=== PATIENT | female | born 1965 | race Caucasian/White ===

== ENCOUNTER 2016-10-13 11:36 | Inpatient (IN) | payer OTHER ==
[~2016-10-13] VITALS: Ht 165.1 cm; Wt 54.4 kg
--- NOTE | 2016-10-13 11:44 | NUR ---
PT BIB [facility] C/O EPIGASTRIC PAIN AND N/V SINCE THIS MORNING S/P RUNNING A MARATHON AND THEN EATING FOOD YESTERDAY. DENIES HEMATEMESIS. DENIES URINARY SYMPTOMS. RESP EVEN UNLABORED. SKIN WARM NONDIAPHORETIC. IN ER BED 14 ON MONITOR. Addendum: 10/13/16 at 1216 by HFOX CORRECTION: RAN 7 MILES, NOT A MARATHON.
[2016-10-13] MEDS ORDERED: IV SET PRIMARY 1 EA INFUS.SET MC ONE (12:39)
[2016-10-13] MEDS ORDERED: IV NS 0.9% 1,000 ML ONE (12:39)
[2016-10-13 12:54] LABS: BASOPHILS # (AUTO) 0.1 /CMM (0.0-0.2); BASOPHILS % (AUTO) 0.9 % (0.0-2.0); EOSINOPHILS # (AUTO) 0.1 /CMM (0.0-0.7); EOSINOPHILS % (AUTO) 0.8 % (0.0-6.0); HEMATOCRIT 43 % (33-45); LYMPHOCYTES # (AUTO) 1.2 /CMM (0.8-4.8); LYMPHOCYTES % (AUTO) 10.4 % (20.0-44.0); MEAN CORPUSCULAR HEMOGLOBIN 28 PG (26.0-33.0); MEAN CORPUSCULAR HGB CONC 33 g/dl (31.0-36.0); MEAN CORPUSCULAR VOLUME 84 fL (82-100); MONOCYTES # (AUTO) 0.4 /CMM (0.1-1.30); MONOCYTES % (AUTO) 3.5 % (2.0-12.0); NEUTROPHILS # (AUTO) 9.6 /CMM (1.8-8.9); NEUTROPHILS % (AUTO) 84.4 % (43.0-81.0); PLATELET COUNT (AUTO) 167 /CMM (150-450); RDW COEFFICIENT OF VARIATION 12.6 (11.5-15.0); RED BLOOD CELL COUNT(AUTO) 5.09 MIL/uL (4.0-5.2); WHITE BLOOD COUNT (AUTO) 11.4 K/uL (4.3-11.0)
--- NOTE | 2016-10-13 12:54 | NUR ---
PT CANNOT URINATE AT THIS TIME. WILL TRY AGAIN AFTER IVF.
[2016-10-13] MEDS ORDERED: IV NS 0.9% 1,000 ML BAG IV ONE (13:00)
[2016-10-13 13:06] LABS: CALCIUM, SERUM 9.1 mg/dL (8.5-10.1); POTASSIUM 3.6 mmol/L (3.5-5.1)
[2016-10-13 13:15] LABS: ALBUMIN 3.8 g/dL (3.4-5.0); BILIRUBIN,DIRECT 0.3 mg/dL (0.0-0.2); BILIRUBIN,TOTAL 2.3 mg/dL (0.2-1.0); TOTAL PROTEIN, SERUM 6.8 g/dL (6.4-8.2)
[2016-10-13] MEDS ORDERED: MORPHINE SULFATE INJ 4 MG/ML DISP.SYRIN ONE (13:59)
[2016-10-13] MEDS ORDERED: ONDANSETRON HCL/PF 4 MG/2 ML VIAL ONE (13:59)
[2016-10-13] MEDS ORDERED: MORPHINE SULFATE INJ 2 MG/ML DISP.SYRIN IV ONE (14:00)
[2016-10-13] MEDS ORDERED: ONDANSETRON HCL/PF 4 MG/2 ML VIAL IVP ONE (14:00)
[2016-10-13 14:27] LABS: APPEARANCE,URINE Hazy (CLEAR); BILIRUBIN,URINE Negative (NEGATIVE); BLOOD, URINE Trace-intact Ery/uL (NEGATIVE); COLOR,URINE Yellow (YELLOW); KETONES,URINE >=160 (NEGATIVE); LEUKOCYTE ESTERASE ,URINE Negative (NEGATIVE); NITRITE, URINE Negative (NEGATIVE); PH,URINE 7.5 (5.0-8.0); PROTEIN,URINE 30 mg/dl (NEGATIVE); UGLUCOSE Negative (NEGATIVE); UROBILINOGEN,URINE 0.2 EU/dL (0.2)
[2016-10-13 14:30] LABS: BACTERIA,URINE Rare /HPF (None Seen); MUCUS,URINE Rare /LPF (None Seen); RBC,URINE 0-3 /HPF (0-2); SQUAMOUS EPITHELIAL CELL,UR Few /HPF (None Seen); WBC,URINE 0-3 /HPF (0-3)
[2016-10-13] MEDS ORDERED: IV NS 0.9% 1,000 ML IV PRN (14:40)
[2016-10-13] MEDS ORDERED: HYDROCODONE/APAP 5/325MG 1 EACH TABLET PO PRN ×2 (15:00→16:30)
[2016-10-13] MEDS ORDERED: PANTOPRAZOLE 40 MG VIAL IV SCH ×2 (15:00→16:30)
[2016-10-13] MEDS ORDERED: ONDANSETRON HCL/PF 4 MG/2 ML VIAL IVP PRN ×2 (15:00→16:30)
[2016-10-13] MEDS ORDERED: MORPHINE SULFATE INJ 2 MG/ML DISP.SYRIN IV PRN ×2 (15:00→16:30)
[2016-10-13] MEDS ORDERED: ZOLPIDEM TARTRATE 5 MG TABLET PO PRN ×2 (15:00→16:30)
[2016-10-13] MEDS ORDERED: Z GUARD REMEDY 2 OZ OINT TP PRN ×2 (15:00→16:30)
[2016-10-13] MEDS ORDERED: METRONIDAZOLE 500MG/ NS 100ML 500 MG in PREMIX 1 EA IV SCH (15:00)
[2016-10-13] MEDS ORDERED: CEFTRIAXONE 1 G in IV D5W 50 ML IV SCH ×2 (15:00→16:30)
[2016-10-13] MEDS ORDERED: ACETAMINOPHEN 325 MG TABLET PO PRN ×2 (15:00→16:30)
[2016-10-13 15:13] LABS: AMYLASE 54 U/L (25-115); LIPASE 117 U/L (73-393)
[2016-10-13] MEDS ORDERED: METOCLOPRAMIDE HCL 10 MG/2 ML VIAL ONE (15:17)
--- NOTE | 2016-10-13 15:25 | NUR ---
TEXTED [facility].
--- NOTE | 2016-10-13 15:38 | NUR ---
[facility] APPROVED
[2016-10-13 16:00] VITALS: BP 129/81
[2016-10-13] MEDS ORDERED: METOCLOPRAMIDE HCL 10 MG/2 ML VIAL IV ONE (16:00)
--- NOTE | 2016-10-13 16:15 | NUR ---
medsurg 205 b2,
--- NOTE | 2016-10-13 16:22 | NUR ---
REPORT GIVEN TO OC RN FOR ADMISSION
--- NOTE | 2016-10-13 16:45 | NUR ---
PT TRANSPORTED TO RM 205 IN STABLE CONDITION VIA WHEELCHAIR
[2016-10-13] MEDS ORDERED: IV SET PRIMARY PUMP SET 1 EA INFUS.SET MC ONE (17:59)
[2016-10-13] MEDS: IV NS 0.9% 1,000 ML IV PRN (18:04)
[2016-10-13] MEDS ORDERED: SECONDARY IV SET 1 EA INFUS.SET MC ONE ×2 (18:13→18:51)
[2016-10-13] MEDS: CEFTRIAXONE 1 G in IV D5W 50 ML IV SCH (18:18)
--- NOTE | 2016-10-13 18:31 | NUR ---
AM RN NOTE Received patient from ER @ 9623 as accompanied by ER staff. Pt A/O X4 verbally responsive, able to make needs known. No SOB noted resp even and non-labored. Pt still c/o abdominal pain. On NPO status. Awaiting for MRCP scheduled @1830 per Tracy RN (ER). IV site on LAC #18 intact and patent. IV hydration started. Skin intact . Pt seen and assessed by Dr. Burrell at this time. Will continue to monitor and endorse to next shift for RAYMUNDO.
[2016-10-13] MEDS: METRONIDAZOLE 500MG/ NS 100ML 500 MG in PREMIX 1 EA IV SCH (18:57)
--- NOTE | 2016-10-13 19:03 | NUR ---
AM RN NOTE Patient had vomiting small amount x1, PRN Zofran IV given. Will monitor for effectiveness and endorse to next shift.
--- NOTE | 2016-10-13 19:30 | NUR ---
MS RN NOTE RECEIVED PATIENT AWAKE ALERT AND ORIENTED IN BED. PATIENT DENIES ANY PAIN AT THIS TIME. STATES SHE IS A LITTLE NAUSEATED. NO FURTHER EMESIS AT THIS TIME. NO SOB OR RESPIRATORY DISTRESS. NOTIFIED RADIOLOGY FOR PT.'S SCHEDULED MRCP. BED LOCKED AND IN LOWEST POSITION. SIDE RAILS UP, CALL LIGHT WITHIN REACH. WILL CONTINUE TO MONITOR.
[2016-10-13 20:00] VITALS: BP 113/72
--- NOTE | 2016-10-13 20:00 | NUR ---
MS RN NOTE PATIENT WENT FOR MRCP VIA WHEELCHAIR IN STABLE CONDITION.
--- NOTE | 2016-10-13 20:45 | NUR ---
MS RN NOTE PATIENT BACK FROM [facility] IN STABLE CONDITION.
[2016-10-13 22:00] VITALS: BP 113/72
[2016-10-14] MEDS: IV NS 0.9% 1,000 ML IV PRN (05:52)
[2016-10-14] MEDS: METRONIDAZOLE 500MG/ NS 100ML 500 MG in PREMIX 1 EA IV SCH ×2 (05:53→13:57)
--- NOTE | 2016-10-14 06:15 | NUR ---
MS RN NOTE PATIENT STABLE. DENIES ANY PAIN OR DISCOMFORT AT THIS TIME. IV SITE INTACT AND PATENT, WITH FLUIDS RUNNING ORDERED. NO INFILTRATION OR REDNESS NOTED. ALL NEEDS MET AND ATTENDED TO. WILL ENDORSE TO DAY SHIFT FOR RAYMUNDO.
--- NOTE | 2016-10-14 07:56 | NUR ---
MS RN NOTES RECEIVED PATIENT RESTING IN BED, AWAKE AND ORIENTED X4. NOT IN ANY DISTRESS, DENIES PAIN/DISCOMFORT AT THIS TIME. NO SOB, ON ROOM AIR WITH 98% 02 SAT. PATIENT DENIES ABDOMINAL DISCOMFORT, STRICT NPO STATUS, PATIENT VERBALIZING THE URGE TO EAT. IV TO LEFT AC #18 NS INFUSING AT 125CC/HR. SAFETY MEASURES RENDERED, CALL LIGHT IS WITHIN REACH. BED IS IN LOWEST, LOCKED POSITION. WILL CONTINUE TO MONITOR.
[2016-10-14 08:00] VITALS: BP 114/64
--- NOTE | 2016-10-14 11:53 | NUR ---
MS/RN NOTES DOCTOR AT BEDSIDE FOR POSSIBLE DISCHARGE.
[2016-10-14 12:12] LABS: ALBUMIN 3.4 g/dL (3.4-5.0); BILIRUBIN,DIRECT 0.2 mg/dL (0.0-0.2); BILIRUBIN,TOTAL 2.4 mg/dL (0.2-1.0); TOTAL PROTEIN, SERUM 6.2 g/dL (6.4-8.2)
[2016-10-14 16:00] VITALS: BP 101/63
[2016-10-14] MEDS: CEFTRIAXONE 1 G in IV D5W 50 ML IV SCH (16:58)
--- NOTE | 2016-10-14 17:21 | NUR ---
MS/RN NOTES PATIENT APPEARS CALM AND RESTFUL. STABLE WITH NO SIGNIFICANT CHANGES. IV ANTIBIOTICS ADMINISTERED ORDERED. DIET ADVANCED, TOLERATING WELL WITH NO INDICATIONS AND/OR COMPLICATIONS NOTED. NO S/S OF ANTIBIOTIC REACTION/SIDE EFFECT NOTED. PREPARE DISCHARGE ORDERED.
--- NOTE | 2016-10-14 19:07 | NUR ---
DISCHARGE MS/RN NOTES ALL DISCHARGE FORMS COMPLETED, SIGNED AND INSTRUCTED TO PATIENT. PATIENT MEDICALLY STABLE, AWAKE AND ORIENTED X4, ALL DISCHARGE INSTRUCTIONS GIVEN, REVIEWED PRESCRIPTION ORDER AND INSTRUCTED ON USAGE. PATIENT VERBALIZED UNDERSTANDING OF D/C INSTRUCTIONS. IV REMOVED AND COVERED WITH 4X4. PATIENT STABLE TO LEAVE VIA UBER. WILL ENDORSE D/C TO WINDOWS APPLICATION PACKAGER
--- NOTE | 2016-10-14 19:40 | NUR ---
MS RN NOTE: PATIENT DISCHARGE HOME, WITH DISCHARGE PAPERWORK AND RADIOLOGY CD. PATIENT OFF FLOOR IN STABLE CONDITION WITH COMMUNITY [facility] PLANNING DIRECTOR ASSIST.
== END 2016-10-14 19:30 | disposition home or self-care (01) | DRG 444 ==
LOC: ER 11:37 → MEDSG2 17:17
PROVIDERS: ADMIT Internal Medicine; ATTEND Internal Medicine
DX: K80.70 Calculus of gallbladder and bile duct without cholecystitis without obstruction (principal); N17.0 Acute kidney failure with tubular necrosis; D72.829 Elevated white blood cell count, unspecified
CPT/HCPCS: 36415; 74181-TC; 76705-TC; 80048-TC; 80076-TC; 81000-TC; 82150-TC; 83690-TC; 85025-TC; 87081-TC; A4216; A4606; C9113; J0696; J2270; J2405; J2765; J3490; J7030; J7060; Z7610